=== PATIENT | female | born 1975 | race African-American/Black ===

== ENCOUNTER 2018-05-22 13:49 | Emergency (ER) | payer OTHER ==
[~2018-05-22] VITALS: Ht 177.8 cm; Wt 126.1 kg
[2018-05-22 14:35] LABS: ABSOLUTE EOSINOPHILS 0.1 thou/uL (0.0-0.7); ABSOLUTE LYMPHOCYTES 1.4 thou/uL (0.8-5.3); ABSOLUTE MONOCYTES 0.4 thou/uL (0.0-1.2); ABSOLUTE NEUTROPHILS 4.8 thou/uL (1.6-8.1); BASOPHILS 0.5 %; EOSINOPHILS 1.7 %; HEMATOCRIT 36.5 % (37.0-47.0); HEMOGLOBIN 11.6 gm/dL (12.0-15.0); LYMPHOCYTES 20.1 %; MCHC 31.8 g/dL (28.0-37.0); MCV 75.5 fL (80.0-100.0); MONOCYTES 6.6 %; MPV 9.3 fl. (7.2-11.1); NUCLEATED RBCS 0 /100WBC; PLATELET COUNT* 179 thou/uL (150-400); POLYS 71.1 %; RBC 4.84 mil/uL (4.20-5.00); WBC 6.7 thou/uL (4.0-11.0)
[2018-05-22 14:48] LABS: ANION GAP 10 mmol/L (7-16); BUN 7 mg/dL (7-18); CALCIUM 8.7 mg/dL (8.5-10.1); CHLORIDE 101 mmol/L (98-107); CO2 27 mmol/L (21-32); CREATININE 0.8 mg/dL (0.6-1.3); GLUCOSE 87 mg/dL (70-99); POTASSIUM 3.1 mmol/L (3.5-5.1); SODIUM 138 mmol/L (136-145)
[2018-05-22 14:54] LABS: ALBUMIN 3.4 g/dL (3.4-5.0); ALKALINE PHOSPHATASE 64 U/L (46-116); SGOT 16 U/L (15-37); SGPT 20 U/L (30-65); TOTAL BILIRUBIN 0.5 mg/dL (<0.1-1.0); TOTAL PROTEIN 7.8 g/dL (6.4-8.2); TROPONIN-I LEVEL <0.06 ng/mL (<0.06)
[2018-05-22 15:42] LABS: URINE BILIRUBIN NEGATIVE (Negative); URINE BLOOD NEGATIVE (Negative); URINE CLARITY CLEAR; URINE COLOR YELLOW; URINE GLUCOSE-RANDOM NEGATIVE (Negative); URINE KETONES NEGATIVE (Negative); URINE LEUKOCYTES NEGATIVE (Negative); URINE NITRITE NEGATIVE (Negative); URINE PROTEIN NEGATIVE (Negative); URINE SPECIFIC GRAVITY >= 1.030 (1.005-1.030)
[2018-05-22 15:57] LABS: AMP/METHAMP Negative (Negative); BARBITURATES Negative (Negative); BENZODIAZEPINES Negative (Negative); COCAINE Negative (Negative); METHADONE Negative (Negative); OPIATES Negative (Negative); PCP Negative (Negative); THC Negative (Negative)
[2018-05-22] MEDS ORDERED: HYDROCHLOROTH12.5 M1 PO (16:13)
[2018-05-22] MEDS ORDERED: LISINOPRIL10 MG PO (16:13)
[2018-05-22] MEDS ORDERED: ONDANSETRON HCL4 M2 PO (17:03)
[2018-05-22 17:16] VITALS: BP 168/103
--- NOTE | 2018-05-23 18:11 | EKG ---
[place] [address] ELECTROCARDIOGRAM REPORT Name: DESEAN ARELLANO Room: [place]#: [id number] Admission: 05/22/18 Attend Phys: Discharge: 05/22/18 Date of : 71 Report #: [id number] THIS REPORT FOR: //name// [facility] ED Test Date: 2018-05-22 Test Time: 14:18:53 Pat Name: DESEAN JERONIMORADHAMICKI CHAVEZ Department: Room: Gender: [employer] Rep[employer] Operator: Rashi FAITH : 1975 Requested By: Rula Chowdary Order Number: [id number] MD: Cristino Epstein Measurements Intervals [place] Rate: 101 P: 64 MT: 181 QRS: 23 QRSD: 97 T: 16 QT: 334 QTc: 433 Interpretive Statements Sinus tachycardia Left atrial enlargement RSR' in V1 or V2, probably normal variant No previous ECG available for comparison Electronically Signed On 05-23-2018 18:10:45 CDT by Cristino Epstein [email or web address] <ELECTRONICALLY SIGNED> By: Cristino Epstein MD, [facility] 05/23/18 181 1418 1418 Cristino Epstein MD, FACC /EPI
== END 2018-05-22 17:16 | disposition home or self-care (01) ==
LOC: M.ERS 13:49
PROVIDERS: Nurse Practitioner Family
DX: I10 Essential (primary) hypertension (principal); R11.0 Nausea